=== PATIENT | male | born 2000 | race Caucasian/White ===

== ENCOUNTER 2021-05-31 06:53 | Emergency (ER) | payer OTHER ==
[~2021-05-31] VITALS: Ht 165.1 cm; Wt 74.4 kg
--- NOTE | 2021-05-31 08:12 | REP ---
INDICATION: trauma COMPARISON: None. TECHNIQUE: Internal rotation, external rotation, and Y view. FINDINGS: No acute fracture or dislocation. The acromioclavicular and glenohumeral joints are intact. No periarticular calcifications or degenerative changes are appreciated. Sub acromial space is normal. Surrounding soft tissues are unremarkable. IMPRESSION: Normal right shoulder radiographs. <Electronically signed by Marc Sharma > 05/31/21 [id number]
[2021-05-31] MEDS ORDERED: IBUPROFEN 600MG TAB PO ONE (08:55)
[2021-05-31] MEDS ORDERED: CYCL-707 PO (08:59)
[2021-05-31] MEDS ORDERED: IBUP-1022 PO (08:59)
[2021-05-31 09:21] VITALS: BP 115/75
== END 2021-05-31 09:24 | disposition home or self-care (01) ==
LOC: M ED 06:53
DX: S29.012A Strain of muscle and tendon of back wall of thorax, initial encounter (principal); S46.011A Strain of muscle(s) and tendon(s) of the rotator cuff of right shoulder, initial encounter; Y99.1 Military activity; Y92.9 Unspecified place or not applicable; Y93.9 Activity, unspecified; X50.0XXA Overexertion from strenuous movement or load, initial encounter